=== PATIENT | female | born 1945 | race Caucasian/White ===

== ENCOUNTER 2023-05-22 05:54 | Day surgery (SDC) | payer MEDICARE, BC ==
[2023-05-20 14:09] VITALS: BMI 23.4
[2023-05-22] MEDS ORDERED: PHENYLephrine 2.5% Ophth Soln 15 ml Bottle ONE (06:11)
[2023-05-22] MEDS ORDERED: Cyclopentolate 0.5% Opth Drops 15 ML BOT ONE (06:11)
[2023-05-22] MEDS ORDERED: fentaNYL 50 mcg/mL 1 mL Vial ONE (06:23)
[2023-05-22] MEDS ORDERED: Midazolam HCl 2 mg/2 ml Vial ONE (06:23)
[2023-05-22] MEDS ORDERED: Fluorouracil 100 MG, Enoxaparin 25 MG, EPINEPHrine 0.3 MG in Ophthalmic Irrigation Solu... IRR SCH (06:45)
[2023-05-22] MEDS ORDERED: Lidocaine 1% PF 5 ML VIAL ONE (07:12)
[2023-05-22] MEDS ORDERED: Bupivacaine 0.75% 10 ML VIAL ONE (07:12)
[2023-05-22] MEDS ORDERED: Indocyanine Green 25 MG/10 ML VIAL ONE (07:12)
[2023-05-22] MEDS ORDERED: Lidocaine 4% PF 5 ML AMP ONE (07:12)
[2023-05-22] MEDS ORDERED: Triamcinolone 40 MG/ML VIAL ONE (07:12)
[2023-05-22] MEDS ORDERED: CEFAZOLIN 1 GM VIAL ONE (07:12)
== END 2023-05-22 08:50 | disposition home or self-care (01) ==
LOC: SDC 05:54
PROVIDERS: ATTEND Ophthalmology Retina Specialist
PROC: 08NE3ZZ Release Right Retina, Percutaneous Approach (ICD-10-PCS; principal; 2023-05-22)
DX: H35.371 Puckering of macula, right eye (principal); H43.821 Vitreomacular adhesion, right eye
CPT/HCPCS: 67025; J0171; J0690; J1650; J2250; J3010; J3301; J3490; J9190

== ENCOUNTER 2024-04-18 16:00 | Outpatient (CLI) | payer MEDICARE, BC | END 2024-04-18 16:01 | disposition home or self-care (01) | LOC: SLEEPLAB 16:00 | PROVIDERS: ATTEND Family Medicine | DX: G47.33 Obstructive sleep apnea (adult) (pediatric) (principal); R53.83 Other fatigue; R06.83 Snoring; G47.10 Hypersomnia, unspecified; E66.9 Obesity, unspecified; Z68.25 Body mass index [BMI] 25.0-25.9, adult | CPT/HCPCS: 95811 ==

== ENCOUNTER 2024-09-06 16:42 | Emergency (ER) | payer MEDICARE, BC ==
[2024-09-06 17:51] LABS: #Basophils 0.03 10x3/uL (0.0-0.2); %Basophils 0.5 % (0.0-1.0); %Eosinophils 1.8 % (0.0-10.0); %Lymphocytes 31.8 % (21.0-51.0); %Neutrophils 55.7 % (42.0-75.0); Hematocrit 37.7 % (36.0-47.0); Mean Corpuscular HGB CONC 34.5 g/dL (32.0-36.0); Mean Corpuscular Hemoglobin 30.7 pg (27.0-31.0); Mean Corpuscular Volume 88.9 fL (78.0-98.0); Mean Platelet Volume 12.7 fL (7.4-10.4); Platelet Count 132 10x3/uL (130-400); RBC Distribution Width 12.5 % (11.5-14.5); Red Blood Cell (RBC) Count 4.24 mill/uL (4.20-5.40)
[2024-09-06] MEDS ORDERED: hydrALAZINE 20 MG/ML VIAL ONE (17:58)
[2024-09-06] MEDS ORDERED: diphenhydrAMINE 25 MG CAP ONE (17:58)
[2024-09-06] MEDS ORDERED: Metoclopramide HCl 10 MG (2 mL) VIAL ONE (17:58)
[2024-09-06] MEDS ORDERED: Acetaminophen 325 MG TAB ONE (18:01)
[2024-09-06 18:05] LABS: Troponin I Less than 0.010 ng/mL (< 0.028)
[2024-09-06 18:10] LABS: Albumin 4.2 g/dL (3.4-4.8); Chloride 103 mmol/L (98-107); Potassium 3.7 mmol/L (3.5-5.1); Sodium 139 mmol/L (136-145)
[2024-09-06 18:11] LABS: Calcium 9.4 mg/dL (7.8-10.44); Globulin 3.2 g/dL (2.4-3.5); Glucose 89 mg/dL (83-110); Protein, Total 7.4 g/dL (5.8-8.1)
[2024-09-06 18:12] LABS: Anion Gap 14 mmol/L (10-20); Carbon Dioxide 26 mmol/L (23-31)
[2024-09-06 18:14] LABS: Alkaline Phosphatase 48 U/L (40-110); Bilirubin, Total 0.4 mg/dL (0.2-1.2)
[2024-09-06 18:15] LABS: BUN (Urea Nitrogen) 16 mg/dL (9.8-20.1); Calc. Creatinine Clearance 0 mL/min (70-130); Estimated GFR 70
[2024-09-06 18:17] LABS: ALT (SGPT) 30 U/L (8-55); AST (SGOT) 32 U/L (5-34)
== END 2024-09-06 19:36 | disposition home or self-care (01) ==
LOC: ERS 16:42
DX: I10 Essential (primary) hypertension (principal); G44.209 Tension-type headache, unspecified, not intractable; E78.00 Pure hypercholesterolemia, unspecified; Z79.899 Other long term (current) drug therapy
CPT/HCPCS: 70450; 70486; 80053; 84484; 85025; 93005; J0360; J2765; 96374; 96375